=== PATIENT | female | born 2000 | race African-American/Black ===

== ENCOUNTER 2021-11-26 08:30 | Emergency (ER) | payer OTHER, SELFPAY ==
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
[2021-11-26 08:38] VITALS: BP 119/80; PULSE 101; O2SAT 100
[2021-11-26 09:08] VITALS: BP 105/59; PULSE 77; RESP 16; TEMP 36.8; O2SAT 100; BMI 36.6
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
[2021-11-26] MEDS: Acetaminophen 325 MG TABLET 975 MG PO (10:06)
[2021-11-26 10:39] LABS: UPreg QC Valid YES; Urine Pregnancy NEGATIVE (NEGATIVE)
== END 2021-11-26 13:08 | disposition home or self-care (01) ==
PROVIDERS: Physician Assistant; Emergency Provider Emergency Medicine; PCP Family Medicine
DX: Z04.1 Encounter for examination and observation following transport accident (principal)
CPT/HCPCS: 72131; 81025; 99284